=== PATIENT | male | born 1985 ===

== ENCOUNTER 2018-07-15 17:03 | Emergency (ER) | payer SELFPAY ==
[2018-07-15 17:12] VITALS: RESP 18
[2018-07-15 18:18] LABS: BASO # 0.1 K/uL (0.0-0.2); BASO % 2.3 % (0.0-2.0); EOS # 0.1 K/uL (0.0-0.7); EOS % 2.3 % (0.0-4.0); HEMOGLOBIN 16.8 g/dL (12.0-18.0); LYMPH # 1.5 K/uL (1.0-4.3); LYMPH % 30.5 % (20.0-40.0); MEAN CELL VOLUME 98.7 fl (80.0-94.0); MEAN CORPUSCULAR HEMOGLOBIN 33.6 pg (27.0-31.0); MEAN PLATELET VOLUME 7.2 fl (7.2-11.7); MONO # 0.4 K/uL (0.0-0.8); MONO % 7.7 % (0.0-10.0); NEUT # 2.9 K/uL (1.8-7.0); NEUT % 57.2 % (50.0-75.0); NRBC % 0.1 % (0.0-0.0); RBC 5.01 Mil/uL (4.40-5.90); RED CELL DISTRIBUTION WIDTH 15.4 % (11.5-14.5)
[2018-07-15 18:34] LABS: ALB/GLOB RATIO 1.5 (1.0-2.1); ALBUMIN 5.3 g/dL (3.5-5.0); ALT/SGPT 297 U/L (21-72); AST/SGOT 340 U/L (17-59); BLOOD UREA NITROGEN 3 mg/dl (9-20); CALCIUM 9.9 mg/dL (8.4-10.2); GFR NON-AFRICAN AMERICAN > 60
[2018-07-15] MEDS ORDERED: Multivitamin (MVI) 10 ML, Thiamine 100 MG, Folic Acid 1 MG in Sodium Chloride 0.9% 1,00... IV ONE (19:00)
--- NOTE | 2018-07-15 19:10 | ED PDOC ---
HPI: Psych/Substance Abuse Time Seen by Provider: 07/15/18 17:12 Chief Complaint (Nursing): Alcohol Ingestion History Per: Patient, EMS Additional Complaint(s): Pt. brought in by EMS as he was found sleeping on the ground. Offers no complaints. Admits to drinking "5 beers today." Past Medical History Reviewed: Historical Data, Nursing Documentation, Vital Signs Vital Signs: Last Vital Signs Temp 98.7 F 07/15/18 17:10 Pulse 66 07/15/18 17:10 Resp 18 07/15/18 17:10 BP 132/93 H 07/15/18 17:10 Pulse Ox 98 07/15/18 17:10 - Surgical History Surgical History: No Surg Hx - Family History Family History: States: No Known Family Hx - Allergies Allergies/Adverse Reactions: Allergies Allergy/AdvReac Type Severity Reaction Status Date / Time Unobtainable Allergy Verified 07/15/18 17:10 Review of Systems ROS Statement: Except As Marked, All Systems Reviewed And Found Negative Physical Exam - Reviewed Nursing Documentation Reviewed: Yes Vital Signs Reviewed: Yes - Physical Exam Appears: Positive for: Well, Non-toxic, No Acute Distress Head Exam: Positive for: ATRAUMATIC, NORMAL INSPECTION, NORMOCEPHALIC Skin: Positive for: Normal Color, Warm. Negative for: Rash Eye Exam: Positive for: EOMI, Normal appearance, PERRL ENT: Positive for: Normal ENT Inspection Neck: Positive for: Normal, Painless ROM Cardiovascular/Chest: Positive for: Regular Rate, Rhythm, Chest Non Tender Respiratory: Positive for: Normal Breath Sounds. Negative for: Respiratory Distress Gastrointestinal/Abdominal: Positive for: Normal Exam, Bowel Sounds, Soft, Other (no ecchymosis ). Negative for: Tenderness Back: Positive for: Normal Inspection. Negative for: L CVA Tenderness, R CVA Tenderness Extremity: Positive for: Normal ROM Neurological/Psych: Positive for: Awake, Alert, Normal Tone, Gait (steady with assistance), Other (AOB; slurred speech noted) - Laboratory Results Result Diagrams: 07/15/18 18:01 07/15/18 18:01 Lab Results: Total Bilirubin 0.7 mg/dl (0.2-1.3) 07/15/18 18:01 AST 340 U/L (17-59) H 07/15/18 18:01 ALT 297 U/L (21-72) H 07/15/18 18:01 Alkaline Phosphatase 176 U/L (38-126) H 07/15/18 18:01 Total Protein 8.8 G/DL (6.3-8.2) H 07/15/18 18:01 Albumin 5.3 g/dL (3.5-5.0) H 07/15/18 18:01 Globulin 3.5 gm/dL (2.2-3.9) 07/15/18 18:01 Albumin/Globulin Ratio 1.5 (1.0-2.1) 07/15/18 18:01 - ECG O2 Sat by Pulse Oximetry: 98 - Progress ED Course And Treament: Labs ordered. ETOH 527 Banana bag ordered. Disposition - Clinical Impression Clinical Impression: Alcohol abuse with intoxication - Patient ED Disposition Is Patient to be Admitted: Transfer of Care (Signed out to Hanh DILLON pending labs, re-evaluation, and sobriety.) - Disposition Disposition Time: 20:00 Condition: STABLE
[2018-07-16 00:52] VITALS: O2SAT 100
--- NOTE | 2018-07-16 01:00 | ED PDOC ---
- Laboratory Results Result Diagrams: 07/15/18 18:01 07/15/18 18:01 Lab Results: Total Bilirubin 0.7 mg/dl (0.2-1.3) 07/15/18 18:01 AST 340 U/L (17-59) H 07/15/18 18:01 ALT 297 U/L (21-72) H 07/15/18 18:01 Alkaline Phosphatase 176 U/L (38-126) H 07/15/18 18:01 Total Protein 8.8 G/DL (6.3-8.2) H 07/15/18 18:01 Albumin 5.3 g/dL (3.5-5.0) H 07/15/18 18:01 Globulin 3.5 gm/dL (2.2-3.9) 07/15/18 18:01 Albumin/Globulin Ratio 1.5 (1.0-2.1) 07/15/18 18:01 - ECG O2 Sat by Pulse Oximetry: 100 Disposition - Clinical Impression Clinical Impression: Alcohol abuse with intoxication - POA Present On Arrival: None - Disposition Disposition: Routine/Home Disposition Time: 00:58 Condition: IMPROVED Instructions: Alcohol Use - When Is Drinking a Problem? Print Language: SERBIAN Progress Note - Review of Symptoms Events since last encounter: 20:00: Transfer of care received from andreina schofield pa-c. patient resting comfortably sleeping with Banana Bag infusing well. will continue to monitor until sober. 00:15: patient awake, requesting cell phone heater engineer helper to call friend to pick him up. 0100: Patient is awake, ambulating with a steady gait. Aox3 answering all questions appropriately. Patient states his friend is outside that will take him home. patient to follow-up with PMD for elevated Liver enyzmes. patient stable for d/c. given return to ed precautions.
[2018-07-16 01:34] VITALS: BP 126/89; PULSE 78; TEMP 98.6
== END 2018-07-16 01:15 | disposition home or self-care (01) ==
LOC: H.ER 17:03
DX: F10.129 Alcohol abuse with intoxication, unspecified (principal); R94.5 Abnormal results of liver function studies
CPT/HCPCS: 80053; 82948; 85025; 99284; G0480; J3411; J7030